=== PATIENT | female | born 2000 | race American Indian/Alaskan Native ===

== ENCOUNTER 2018-12-01 13:08 | Emergency (ER) | payer OTHER ==
--- NOTE | 2018-12-01 13:26 | Emergency Department Report ---
Blank Doc - Documentation Documentation: This is a 18-year-old female that presents with vaginal discharge. This initial assessment/diagnostic orders/clinical plan/treatment(s) is/are subject to change based on patient's health status, clinical progression and re- assessment by fellow clinical providers in the ED. Further treatment and workup at subsequent clinical providers discretion. Patient/guardians urged not to elope from the ED as their condition may be serious if not clinically assessed and managed. Initial orders include: 1- Patient sent to [facility] for further evaluation and treatment 2- wet prep/GC 3- UA
[2018-12-01 17:05] LABS: Bilirubin,Urine NEG (Negative); Blood,Urine LG (Negative); Color,Urine Red (Yellow); Mucus,Urine 3+ /HPF; Urobilinogen,Urine < 2.0 mg/dL (<2.0)
[2018-12-01 17:10] LABS: RBC,Urine > 182.0 /HPF (0.0-6.0)
[2018-12-01 17:40] LABS: HCG Qualitative,Urine Negative (Negative)
--- NOTE | 2018-12-01 18:10 | Emergency Department Report ---
<GENIE MARTÍNEZ - Last Filed: 12/01/18 18:18> ED Female HPI - General Chief complaint: Urogenital-Female Stated complaint: VAGINAL IRRITATION Time Seen by Provider: 12/01/18 13:25 Source: patient Mode of arrival: Ambulatory Limitations: No Limitations - History of Present Illness Initial comments: Pt is a 18 yo female who presents to the ED with c/o white, thick vaginal discharge that began 5 days ago. She has associated vaginal irritation and dysuria. She denies any N/V, itching, lesions, fever, abd pain. She states that she took monistat one day for a yeast infection but it did not improve her sx. She is not sexually active and has not been in 6 months. She states she is not concerned for STDs. Pt is currently on her cycle. - Related Data Previous Rx's Medication Instructions Recorded Last Taken Type Ibuprofen [Motrin 600 MG tab] 600 mg PO Q8H PRN #15 tablet 10/07/18 Unknown Rx Fluconazole [Diflucan] 150 mg PO ONCE #1 tablet 12/01/18 Unknown Rx Sulfamethoxazole/Trimethoprim 1 each PO BID 3 Days #6 tablet 12/01/18 Unknown Rx [Bactrim DS TAB] metroNIDAZOLE [Flagyl] 500 mg PO BID 7 Days #14 tab 12/01/18 Unknown Rx Allergies Allergy/AdvReac Type Severity Reaction Status Date / Time No Known Allergies Allergy Unverified 10/07/18 07:15 ED Review of Systems Comment: All other systems reviewed and negative ED Past Medical Hx - Past Medical History Previous Medical History?: No - Surgical History Past Surgical History?: No - Social History Smoking Status: Never Smoker Substance Use Type: None - Medications Home Medications: Home Medications Medication Instructions Recorded Confirmed Last Taken Type Ibuprofen [Motrin 600 MG tab] 600 mg PO Q8H PRN #15 tablet 10/07/18 Unknown Rx Fluconazole [Diflucan] 150 mg PO ONCE #1 tablet 12/01/18 Unknown Rx Sulfamethoxazole/Trimethoprim 1 each PO BID 3 Days #6 tablet 12/01/18 Unknown Rx [Bactrim DS TAB] metroNIDAZOLE [Flagyl] 500 mg PO BID 7 Days #14 tab 12/01/18 Unknown Rx ED Physical Exam - General Limitations: No Limitations General appearance: alert, in no apparent distress - Head Head exam: Present: atraumatic, normocephalic - Eye Eye exam: Present: normal appearance - ENT ENT exam: Present: mucous membranes moist - Respiratory Respiratory exam: Absent: respiratory distress - Cardiovascular Cardiovascular Exam: Present: regular rate - GI/Abdominal GI/Abdominal exam: Present: soft. Absent: distended, tenderness, guarding, rebound, rigid - External exam: Present: normal external exam. Absent: erythema, swelling, lesions, lacerations, ecchymosis Speculum exam: Present: vaginal bleeding (heavy bleeding from menses, unable to fully visualize cervix, no obvious discharge visualized), other (jayden, director of emergency nursing present during examination ) Bi-manual exam: Present: normal bi-manual exam. Absent: cervical motion tendernes, adnexal tenderness, adnexal mass - Back Exam Back exam: Absent: CVA tenderness (R), CVA tenderness (L) - Neurological Exam Neurological exam: Present: alert, oriented X3 - Psychiatric Psychiatric exam: Present: normal affect, normal mood - Skin Skin exam: Present: warm, dry, intact ED Medical Decision Making - Lab Data Lab Results 12/01/18 Range/Units 14:46 Urine Color Red (Yellow) Urine Turbidity Cloudy (Clear) Urine pH 6.0 (5.0-7.0) Ur Specific [place] 1.028 (1.003-1.030) Urine Protein 30 mg/dl (Negative) mg/dL Urine Glucose (UA) Neg (Negative) mg/dL Urine Ketones Neg (Negative) mg/dL Urine Blood Lg (Negative) Urine Nitrite Neg (Negative) Urine Bilirubin Neg (Negative) Urine Urobilinogen < 2.0 (<2.0) mg/dL Ur Leukocyte Esterase Sm (Negative) Urine WBC (Auto) 86.0 H (0.0-6.0) /HPF Urine RBC (Auto) > 182.0 (0.0-6.0) /HPF U Epithel Cells (Auto) 13.0 (0-13.0) /HPF Urine Mucus 3+ /HPF Urine HCG, Qual Negative (Negative) Vital Signs 12/01/18 13:25 Temperature 98.3 F Pulse Rate 76 Respiratory 16 Rate Blood Pressure 104/61 O2 Sat by Pulse 99 Oximetry - Medical Decision Making Pt is a 18 yo female who presents to the ED with c/o white, thick vaginal discharge that began 5 days ago. She has associated vaginal irritation and dysuria. She denies any N/V, itching, lesions, fever, abd pain. She states that she took monistat one day for a yeast infection but it did not improve her sx. She is not sexually active and has not been in 6 months. She states she is not concerned for STDs. Pt is currently on her cycle. On pelvic examination heavy amount of bleeding from menses, unable to fully visualize cervix, no obvious discharge visualized, no CMT, no adnexal tenderness. Will cover pt with t reatment for yeast and BV. Advised to not drink ETOH while taking flagyl. VSS. UA shows many WBCs, will treat for a UTI. Advised to follow up with a CORNER CUTTER and a PCP in the next 2-3 days. Return to the ED for any new or worsening symptoms. - Differential Diagnosis UTI, BV, yeast ED Disposition Clinical Impression: Vaginitis Qualifiers: Chronicity: acute Qualified Code(s): N76.0 - Acute vaginitis Disposition: TO HOME OR SELFCARE Is pt being admited?: No Does the pt Need Aspirin: No Condition: Good Instructions: Urinary Tract Infection in Women (ED) Additional Instructions: Please follow up with a primary care doctor and a SLEEPING CAR CONDUCTOR in the next 2-3 days. Please take all medication as prescribed. Do NOT drink alcohol while taking medication. Return to the ED for any new or worsening symptoms. Prescriptions: Sulfamethoxazole/Trimethoprim [Bactrim DS TAB] 1 each PO BID 3 Days #6 tablet Fluconazole [Diflucan] 150 mg PO ONCE #1 tablet metroNIDAZOLE [Flagyl] 500 mg PO BID 7 Days #14 tab Referrals: [facility] MD KAILASH [Primary Care Provider] - 2-3 Days [facility] [Provider Group] - 2-3 Days Time of Disposition: 18:25 Print Language: ARABIC <VENKAT LEMUS - Last Filed: 12/02/18 01:50> ED Review of Systems ROS: Stated complaint: VAGINAL IRRITATION Other details as noted in HPI ED Course Vital Signs 12/01/18 12/01/18 13:25 18:43 Temperature 98.3 F Pulse Rate 76 89 Respiratory 16 18 Rate Blood Pressure 104/61 Blood Pressure 112/86 [Right] O2 Sat by Pulse 99 99 Oximetry Critical care attestation.: If time is entered above; I have spent that time in minutes in the direct care of this critically ill patient, excluding procedure time. ED Disposition Is pt being admited?: No Does the pt Need Aspirin: No
[2018-12-01 18:44] VITALS: BP 112/86
== END 2018-12-01 18:42 | disposition home or self-care (01) ==
LOC: ED 13:08
DX: N76.0 Acute vaginitis (principal)
CPT/HCPCS: 81001; 81025

== ENCOUNTER 2020-05-22 10:46 | Emergency (ER) | payer SELFPAY ==
[2020-05-22 11:03] VITALS: BP 117/69
[2020-05-22 11:31] LABS: Bilirubin,Urine NEG (Negative); Blood,Urine NEG (Negative); Color,Urine Yellow (Yellow); Mucus,Urine 3+ /HPF; Urobilinogen,Urine < 2.0 mg/dL (<2.0)
[2020-05-22 11:33] LABS: HCG Qualitative,Urine Positive (Negative)
[2020-05-22] MEDS ORDERED: ACETAMINOPHEN 500 MG TAB PO ONE (11:34)
[2020-05-22] MEDS ORDERED: METOCLOPRAMIDE 10 MG TAB PO ONE (11:34)
--- NOTE | 2020-05-22 12:17 | Emergency Department Report ---
ED Abdominal Pain HPI - General Chief Complaint: Abdominal Pain Stated Complaint: ABD PAIN/BACK PAIN Time Seen by Provider: 05/22/20 11:20 Source: patient Mode of arrival: Ambulatory Limitations: No Limitations - History of Present Illness Initial Comments: Patient is a 20-year-old female presents emergency room complaints of lower abdominal cramping that began a week ago. She states that initially she thought it was due to her menstrual cycle but the cramping increased. She states that she never had her cycle and missed her cycle. She states that she believes she may be . She states that she has not taken a test. She denies any dysuria, dark urine, urinary frequency, fever, diarrhea, vaginal discharge or irritation, vaginal bleeding. She states her last menstrual cycle was April 17. She has a past medical history of scoliosis. No allergies to medications. She states that this would be her first . Severity scale (0 -10): 4 - Related Data Previous Rx's Medication Instructions Recorded Last Taken Type Ibuprofen [Motrin 600 MG tab] 600 mg PO Q8H PRN #15 tablet 10/07/18 Unknown Rx Fluconazole [Diflucan] 150 mg PO ONCE #1 tablet 12/01/18 Unknown Rx Sulfamethoxazole/Trimethoprim 1 each PO BID 3 Days #6 tablet 12/01/18 Unknown Rx [Bactrim DS TAB] metroNIDAZOLE [Flagyl] 500 mg PO BID 7 Days #14 tab 12/01/18 Unknown Rx Allergies Allergy/AdvReac Type Severity Reaction Status Date / Time No Known Allergies Allergy Unverified 10/07/18 07:15 ED Review of Systems ROS: Stated complaint: ABD PAIN/BACK PAIN Other details as noted in HPI Comment: All other systems reviewed and negative ED Past Medical Hx - Past Medical History Previous Medical History?: No - Surgical History Past Surgical History?: No - Social History Smoking Status: Current Some Day Smoker Substance Use Type: Prescribed - Medications Home Medications: Home Medications Medication Instructions Recorded Confirmed Last Taken Type Ibuprofen [Motrin 600 MG tab] 600 mg PO Q8H PRN #15 tablet 10/07/18 Unknown Rx Fluconazole [Diflucan] 150 mg PO ONCE #1 tablet 12/01/18 Unknown Rx Sulfamethoxazole/Trimethoprim 1 each PO BID 3 Days #6 tablet 12/01/18 Unknown Rx [Bactrim DS TAB] metroNIDAZOLE [Flagyl] 500 mg PO BID 7 Days #14 tab 12/01/18 Unknown Rx ED Physical Exam - General Limitations: No Limitations General appearance: alert, in no apparent distress - Head Head exam: Present: atraumatic, normocephalic - Eye Eye exam: Present: normal appearance - ENT ENT exam: Present: mucous membranes moist - Respiratory Respiratory exam: Present: normal lung sounds bilaterally. Absent: respiratory distress, wheezes, rales, rhonchi, stridor, chest wall tenderness, accessory muscle use, decreased breath sounds, prolonged expiratory - Cardiovascular Cardiovascular Exam: Present: regular rate, normal rhythm, normal heart sounds. Absent: systolic murmur, diastolic murmur, rubs, gallop - GI/Abdominal GI/Abdominal exam: Present: soft, normal bowel sounds. Absent: distended, tenderness, guarding, rebound, rigid - Neurological Exam Neurological exam: Present: alert, oriented X3 - Psychiatric Psychiatric exam: Present: normal affect, normal mood - Skin Skin exam: Present: warm, dry, intact ED Course Vital Signs 05/22/20 05/22/20 10:59 11:37 Temperature 97.6 F Pulse Rate 74 Respiratory 20 16 Rate Blood Pressure 117/69 O2 Sat by Pulse 96 Oximetry ED Medical Decision Making - Lab Data Result diagrams: 05/22/20 11:53 05/22/20 11:53 Lab Results 05/22/20 05/22/20 05/22/20 Range/Units 11:01 11:53 11:53 WBC 3.9 L (4.5-11.0) K/mm3 RBC 4.14 (3.65-5.03) M/mm3 Hgb 13.4 (10.1-14.3) gm/dl Hct 38.8 (30.3-42.9) % MCV 94 (79-97) fl MCH 32 (28-32) pg MCHC 35 H (30-34) % RDW 12.7 L (13.2-15.2) % Plt Count 204 (140-440) K/mm3 Lymph % (Auto) 29.9 (13.4-35.0) % [place] % (Auto) 10.9 H (0.0-7.3) % Eos % (Auto) 0.2 (0.0-4.3) % Baso % (Auto) 0.6 (0.0-1.8) % Lymph # (Auto) 1.2 (1.2-5.4) K/mm3 [place] # (Auto) 0.4 (0.0-0.8) K/mm3 Eos # (Auto) 0.0 (0.0-0.4) K/mm3 Baso # (Auto) 0.0 (0.0-0.1) K/mm3 Seg Neutrophils % 58.4 (40.0-70.0) % Seg Neutrophils # 2.3 (1.8-7.7) K/mm3 Sodium 136 L (137-145) mmol/L Potassium 4.2 (3.6-5.0) mmol/L Chloride 102.4 (98-107) mmol/L Carbon Dioxide 20 L (22-30) mmol/L Anion Gap 18 mmol/L BUN 13 (7-17) mg/dL Creatinine 0.6 (0.6-1.2) mg/dL Estimated GFR > 60 ml/min BUN/Creatinine Ratio 22 % Glucose 82 (65-100) mg/dL Calcium 10.1 (8.4-10.2) mg/dL HCG, Quant (0-4) mIU/mL Urine Color Yellow (Yellow) Urine Turbidity Slightly-cloudy (Clear) Urine pH 6.0 (5.0-7.0) Ur Specific [place] 1.030 (1.003-1.030) Urine Protein 100 mg/dl (Negative) mg/dL Urine Glucose (UA) Neg (Negative) mg/dL Urine Ketones 20 (Negative) mg/dL Urine Blood Neg (Negative) Urine Nitrite Neg (Negative) Urine Bilirubin Neg (Negative) Urine Urobilinogen < 2.0 (<2.0) mg/dL Ur Leukocyte Esterase Tr (Negative) Urine WBC (Auto) 6.0 (0.0-6.0) /HPF Urine RBC (Auto) 1.0 (0.0-6.0) /HPF U Epithel Cells (Auto) 12.0 (0-13.0) /HPF Urine Mucus 3+ /HPF Urine HCG, Qual Positive A (Negative) 05/22/20 Range/Units 11:53 WBC (4.5-11.0) K/mm3 RBC (3.65-5.03) M/mm3 Hgb (10.1-14.3) gm/dl Hct (30.3-42.9) % MCV (79-97) fl MCH (28-32) pg MCHC (30-34) % RDW (13.2-15.2) % Plt Count (140-440) K/mm3 Lymph % (Auto) (13.4-35.0) % [place] % (Auto) (0.0-7.3) % Eos % (Auto) (0.0-4.3) % Baso % (Auto) (0.0-1.8) % Lymph # (Auto) (1.2-5.4) K/mm3 [place] # (Auto) (0.0-0.8) K/mm3 Eos # (Auto) (0.0-0.4) K/mm3 Baso # (Auto) (0.0-0.1) K/mm3 Seg Neutrophils % (40.0-70.0) % Seg Neutrophils # (1.8-7.7) K/mm3 Sodium (137-145) mmol/L Potassium (3.6-5.0) mmol/L Chloride (98-107) mmol/L Carbon Dioxide (22-30) mmol/L Anion Gap mmol/L BUN (7-17) mg/dL Creatinine (0.6-1.2) mg/dL Estimated GFR ml/min BUN/Creatinine Ratio % Glucose (65-100) mg/dL Calcium (8.4-10.2) mg/dL HCG, Quant 6921 H (0-4) mIU/mL Urine Color (Yellow) Urine Turbidity (Clear) Urine pH (5.0-7.0) Ur Specific [place] (1.003-1.030) Urine Protein (Negative) mg/dL Urine Glucose (UA) (Negative) mg/dL Urine Ketones (Negative) mg/dL Urine Blood (Negative) Urine Nitrite (Negative) Urine Bilirubin (Negative) Urine Urobilinogen (<2.0) mg/dL Ur Leukocyte Esterase (Negative) Urine WBC (Auto) (0.0-6.0) /HPF Urine RBC (Auto) (0.0-6.0) /HPF U Epithel Cells (Auto) (0-13.0) /HPF Urine Mucus /HPF Urine HCG, Qual (Negative) - Radiology Data Radiology results: report reviewed EARLY OBSTETRICAL ULTRASOUND INDICATION: , pelvic pain COMPARISON: None TECHNIQUE: Transabdominal FINDINGS: Strongly anteverted uterus is seen. In the endometrium of the fundus a small gestational sac is well seen with sac size corresponding to 5 weeks 5 days. A small yolk sac is seen. No definite pole is identified. No cardiac activity was reported. No obvious implantational bleed is seen. Right ovary measures 3 cm in length and shows a 17 mm simple cyst. Left ovary measures 2.6 cm in length and shows no focal abnormalities. No free fluid is seen. IMPRESSION: Early intrauterine is seen as above but I cannot confirm viability. Follow-up is suggested. Signer Name: Bharathi Hull MD Signed: 05/22/2020 1:49 PM Workstation Name: [id number] Transcribed By: GJ Dictated By: Bharathi Hull MD Electronically Authenticated By: Bharathi Hull MD Signed Date/Time: 05/22/20 1349 DD/ 1328 TD/TT: - Medical Decision Making Patient is a 20-year-old female presents emergency room complaints of lower abdominal cramping that began a week ago. She states that initially she thought it was due to her menstrual cycle but the cramping increased. She states that she never had her cycle and missed her cycle. She states that she believes she may be . She states that she has not taken a test. She denies any dysuria, dark urine, urinary frequency, fever, diarrhea, vaginal discharge or irritation, vaginal bleeding. She states her last menstrual cycle was April 17. She has a past medical history of scoliosis. No allergies to medications. She states that this would be her first . vitals are normal. No abdominal tenderness on exam, no guarding, no rebound, no rigidity. UA is within normal limits. Urine is positive. Labs and ultrasound ordered. Labs are stable. hCG quant is 6921. OB US: IMPRESSION: Early intrauterine is seen as above but I cannot confirm viability. Follow-up is suggested. Patient given Tylenol and Reglan and symptoms improved. Findings most likely consistent with early IUP, but given that viability cannot be confirmed, will be diagnosed with threatened miscarriage. Patient eloped from the emergency department prior to receiving her results. Attempted to call patient's phone number and there was no answer. - Differential Diagnosis IUP, ectopic, ovarian cyst, torsion, UTI, threatened miscarriage Critical care attestation.: If time is entered above; I have spent that time in minutes in the direct care of this critically ill patient, excluding procedure time. ED Disposition Clinical Impression: Threatened miscarriage Disposition: ELOPED Is pt being admited?: No Does the pt Need Aspirin: No Condition: Stable Instructions: Threatened Miscarriage (ED) Additional Instructions: please take medication as prescribed as needed. Increase your water intake. Please take a vitamin [id number]. Please follow-up with SCANNING SUPERVISOR. You will need close SCANNING SUPERVISOR follow-up. Return to emergency room for any new or worsening symptoms. Referrals: [facility] MD KAILASH [Primary Care Provider] - 2-3 Days DARRIUS GOLDBERG MD [Staff Physician] - 2-3 Days [facility] [Provider Group] - 2-3 Days [facility] [Provider Group] - 2-3 Days Time of Disposition: 15:03 Print Language: BELIZEAN
[2020-05-22 12:36] LABS: Basophils % (Auto) 0.6 % (0.0-1.8); Eosinophils % (Auto) 0.2 % (0.0-4.3); Hematocrit 38.8 % (30.3-42.9); Hemoglobin 13.4 gm/dl (10.1-14.3); Lymphocytes # (Auto) 1.2 K/mm3 (1.2-5.4); Lymphocytes % (Auto) 29.9 % (13.4-35.0); Mean Corpuscular HGB Conc 35 % (30-34); Mean Corpuscular Volume 94 fl (79-97); Monocytes # (Auto) 0.4 K/mm3 (0.0-0.8); Monocytes % (Auto) 10.9 % (0.0-7.3); Platelet Count 204 K/mm3 (140-440); Red Blood Count 4.14 M/mm3 (3.65-5.03); Red Cell Distribution Width 12.7 % (13.2-15.2)
[2020-05-22 12:40] LABS: Blood Urea Nitrogen 13 mg/dL (7-17); Calcium 10.1 mg/dL (8.4-10.2); Hemolysis Index 6
[2020-05-22 12:46] LABS: BUN/Creatinine Ratio 22
--- NOTE | 2020-05-22 13:54 | Ultrasound Report ---
EARLY OBSTETRICAL ULTRASOUND INDICATION: , pelvic pain COMPARISON: None TECHNIQUE: Transabdominal FINDINGS: Strongly anteverted uterus is seen. In the endometrium of the fundus a small gestational sa c is well seen with sac size corresponding to 5 weeks 5 days. A small yolk sac is seen. No definite f etal pole is identified. No cardiac activity was reported. No obvious implantational bleed is seen. Right ovary measures 3 cm in length and shows a 17 mm simple cyst. Left ovary measures 2.6 cm in finn th and shows no focal abnormalities. No free fluid is seen. IMPRESSION: Early intrauterine is seen as above but I cannot confirm viability. Follow-up i s suggested. Signer Name: Bharathi Hull MD Signed: 05/22/2020 1:49 PM Workstation Name: [email or web address][id number]
== END 2020-05-22 14:25 | disposition left against medical advice (07) ==
LOC: ED 10:46
DX: O20.0 Threatened abortion (principal); O99.331 Smoking (tobacco) complicating pregnancy, first trimester; Z3A.01 Less than 8 weeks gestation of pregnancy; Z79.899 Other long term (current) drug therapy
CPT/HCPCS: 36415; 76801; 80048; 81001; 81025; 84702; 85025; 99284